=== PATIENT | male | born 1935 | race Caucasian/White ===

== ENCOUNTER 2016-08-24 13:56 | Emergency (ER) | payer MEDICARE ==
[2016-08-24 14:04] VITALS: RESP 22; TEMP 97.4
[2016-08-24 15:18] LABS: APPEARANCE,URINE Clear; BILIRUBIN,URINE NEGATIVE (NEGATIVE); COLOR,URINE Amber; GLUCOSE, URINE (UA) NEGATIVE (NEGATIVE); KETONES,URINE NEGATIVE (NEGATIVE); LEUKOCYTE ESTERASE ,URINE NEGATIVE (NEGATIVE); NITRATE,URINE NEGATIVE (NEGATIVE); OCCULT BLOOD,URINE 3+ (NEG-TRACE)
[2016-08-24 15:22] LABS: RBC,URINE TNTC (0-3AV/HPF); WBC,URINE 0-2 (0-5AV/HPF)
[2016-08-24 15:28] VITALS: BP 97/54; PULSE 72; O2SAT 96
== END 2016-08-24 15:10 | disposition home or self-care (01) | DRG 696 ==
LOC: ED 13:56
DX: R33.9 Retention of urine, unspecified (principal)
CPT/HCPCS: 51798; 81001; 99282; 99284

== ENCOUNTER 2016-08-27 07:43 | Emergency (ER) | payer MEDICARE ==
[2016-08-27 07:44] VITALS: O2SAT 96
[2016-08-27 09:32] VITALS: BP 105/48; PULSE 75; RESP 20; TEMP 97.8
== END 2016-08-27 11:10 | disposition home or self-care (01) | DRG 696 ==
LOC: ED 07:43
DX: R33.9 Retention of urine, unspecified (principal); N47.2 Paraphimosis
CPT/HCPCS: 51798; 99283

== ENCOUNTER 2017-02-19 07:44 | Emergency (ER) | payer MEDICARE ==
[2017-02-19 08:17] VITALS: BP 139/78; PULSE 100; RESP 22; TEMP 98.5; O2SAT 94
== END 2017-02-19 08:30 | disposition home or self-care (01) | DRG 696 ==
LOC: ED 07:44
DX: R33.9 Retention of urine, unspecified (principal)
CPT/HCPCS: 99282

== ENCOUNTER 2017-02-23 21:23 | Emergency (ER) | payer MEDICARE ==
[2017-02-23 21:29] VITALS: RESP 22; TEMP 97.3
[2017-02-23 23:35] VITALS: BP 122/70; PULSE 69; O2SAT 92
== END 2017-02-23 22:20 | disposition home or self-care (01) | DRG 696 ==
LOC: ED 21:23
DX: R33.9 Retention of urine, unspecified (principal); Z46.6 Encounter for fitting and adjustment of urinary device
CPT/HCPCS: 99282

== ENCOUNTER 2017-03-14 08:06 | Emergency (ER) | payer MEDICARE ==
[2017-03-14 08:27] VITALS: RESP 22; TEMP 99.9
[2017-03-14 09:09] LABS: APPEARANCE,URINE Turbid; BILIRUBIN,URINE NEGATIVE (NEGATIVE); COLOR,URINE Yellow; GLUCOSE, URINE (UA) NEGATIVE (NEGATIVE); KETONES,URINE NEGATIVE (NEGATIVE); LEUKOCYTE ESTERASE ,URINE 3+ (NEGATIVE); NITRATE,URINE POSITIVE (NEGATIVE); OCCULT BLOOD,URINE 2+ (NEG-TRACE); UROBILINOGEN,URINE 0.2 (0.2-1.0 EU)
[2017-03-14 09:22] LABS: WBC,URINE TNTC (0-5AV/HPF)
[2017-03-14 09:51] VITALS: BP 117/68; PULSE 86; O2SAT 94
== END 2017-03-14 09:38 | disposition home or self-care (01) | DRG 700 ==
LOC: ED 08:06
DX: T83.098A Other mechanical complication of other urinary catheter, initial encounter (principal); R33.9 Retention of urine, unspecified
CPT/HCPCS: 81001; 87077; 87088; 87186; 99282

== ENCOUNTER 2017-07-16 06:17 | Emergency (ER) | payer MEDICARE ==
[2017-07-16 06:38] VITALS: BP 105/59; TEMP 97.6
[2017-07-16 08:46] VITALS: PULSE 93; RESP 22
[2017-07-16 08:47] VITALS: O2SAT 94
== END 2017-07-16 08:14 | disposition home or self-care (01) | DRG 700 ==
LOC: ED 06:17
DX: T83.091A Other mechanical complication of indwelling urethral catheter, initial encounter (principal); R30.0 Dysuria
CPT/HCPCS: 51702; 99283

== ENCOUNTER 2018-04-21 16:08 | Emergency (ER) | payer MEDICARE ==
[2018-04-21 16:40] VITALS: RESP 24; TEMP 97.4; O2SAT 91
[2018-04-21] MEDS ORDERED: LIDOCAINE HCL 2% GEL TOP ONE (16:54)
[2018-04-21 18:06] VITALS: BP 115/80; PULSE 96
== END 2018-04-21 17:45 | disposition home or self-care (01) | DRG 696 ==
LOC: ED 16:08
DX: R33.9 Retention of urine, unspecified (principal)
CPT/HCPCS: 51702; 51798; 99283; A9270-GY

== ENCOUNTER 2018-06-30 05:50 | Inpatient (IN) | payer MEDICARE ==
[2018-06-30] MEDS: SODIUM CHLORIDE 0.9% FLUSH 10 ML SOL IV PRN (06:00)
[2018-06-30] MEDS ORDERED: LORAZEPAM 2 MG/ML SOL ONE (06:13)
[2018-06-30] MEDS ORDERED: LORAZEPAM 2 MG/ML 10ML MDV 2 MG/ML VIAL IV ONE ×2 (06:20→23:50)
[2018-06-30 06:23] LABS: HEMATOCRIT 41 % (39-53); HEMOGLOBIN 13.3 gm/dl (13.5-17.7); MEAN CORPUSCULAR HEMOGLOBIN 29.8 pg (27.0-32.0); MEAN CORPUSCULAR HGB CONC 32.5 gm/dl (32.0-36.0); MEAN CORPUSCULAR VOLUME 92 fL (80-100)
[2018-06-30 06:29] LABS: ALBUMIN 3.2 gm/dl (3.4-5.0); BILIRUBIN,TOTAL 0.8 mg/dl (0.2-1.0); CALCIUM 9.3 mg/dl (8.5-10.1); CARBON DIOXIDE 29.6 mEq/L (21-32); CREATININE 1.17 mg/dl (0.80-1.30); POTASSIUM 5.2 mMol/L (3.5-5.1); TOTAL PROTEIN 7.9 gm/dl (6.4-8.2); TROP I 0.026 ng/ml (0.000-0.056)
[2018-06-30 06:35] LABS: INR 1.14 (0.86-1.12)
[2018-06-30 06:44] LABS: BAND NEUTROPHILS % (MANUAL) 5 %; BASOPHILS % (MANUAL) 0 % (0-3); EOSINOPHILS % (MANUAL) 0 % (0-9); LYMPHOCYTES % (MANUAL) 3 % (10-50); MONOCYTES % (MANUAL) 8 % (0-12); NEUTROPHILS % (MANUAL) 84 % (37-80)
[2018-06-30 06:45] LABS: ANISOCYTOSIS SLIGHT
[2018-06-30 06:49] LABS: APPEARANCE,URINE Cloudy; BILIRUBIN,URINE NEGATIVE (NEGATIVE); COLOR,URINE Yellow; GLUCOSE, URINE (UA) NEGATIVE (NEGATIVE); KETONES,URINE 1+ (NEGATIVE); LEUKOCYTE ESTERASE ,URINE 1+ (NEGATIVE); NITRATE,URINE POSITIVE (NEGATIVE); OCCULT BLOOD,URINE 1+ (NEG-TRACE); PH,URINE 8.5
[2018-06-30 06:59] LABS: BACTERIA 3+ (< 1+); CRYSTALS NEGATIVE (0-3 AVE/HPF); EPITHELIAL CELLS 0-1 (SQUAMOUS); WBC,URINE 90-100 (0-5AV/HPF)
[2018-06-30] MEDS ORDERED: LEVOFLOXACIN 25 MG/ML 750 MG in SODIUM CHLORIDE 0.9% 250 ML 150 ML IV ONE (08:00)
[2018-06-30] MEDS ORDERED: LEVOFLOXACIN 25 MG/ML SOL IV ONE ×2 (08:19→21:58)
[2018-06-30 08:57] LABS: ABG PH 7.4 (7.35-7.45)
[2018-06-30 09:31] LABS: TROP I 0.04 ng/ml (0.000-0.056)
[2018-06-30] MEDS ORDERED: PATIENT EDUCATION 1 MISC PRN (09:33)
[2018-06-30] MEDS: SODIUM CHLORIDE 0.9% 1000ML 1,000 ML IV SCH ×2 (11:22→21:24)
[2018-06-30 17:19] LABS: CALCIUM 8.5 mg/dl (8.5-10.1); CARBON DIOXIDE 35.1 mEq/L (21-32); CREATININE 0.76 mg/dl (0.80-1.30); POTASSIUM 4.6 mMol/L (3.5-5.1)
[2018-06-30] MEDS ORDERED: SODIUM CHLORIDE 0.9% 250 ML 250 ML IV ONE (21:58)
[2018-07-01] MEDS ORDERED: LORAZEPAM 2 MG/ML SOL ONE (02:07)
[2018-07-01] MEDS ORDERED: ALBUTEROL/IPRATROPIUM 1 VIAL SOL INH PRN (02:14)
[2018-07-01 07:18] LABS: CALCIUM 8.5 mg/dl (8.5-10.1); CREATININE 0.62 mg/dl (0.80-1.30); POTASSIUM 4.2 mMol/L (3.5-5.1)
[2018-07-01 07:22] LABS: HEMATOCRIT 37 % (39-53); HEMOGLOBIN 11.5 gm/dl (13.5-17.7); MEAN CORPUSCULAR HEMOGLOBIN 29.4 pg (27.0-32.0); MEAN CORPUSCULAR HGB CONC 31.1 gm/dl (32.0-36.0); MEAN CORPUSCULAR VOLUME 95 fL (80-100)
[2018-07-01] MEDS: SODIUM CHLORIDE 0.9% 1000ML 1,000 ML IV SCH (07:29)
[2018-07-01 07:39] LABS: BAND NEUTROPHILS % (MANUAL) 4 %; BASOPHILS % (MANUAL) 0 % (0-3); EOSINOPHILS % (MANUAL) 0 % (0-9); LYMPHOCYTES % (MANUAL) 6 % (10-50); MONOCYTES % (MANUAL) 8 % (0-12); NEUTROPHILS % (MANUAL) 82 % (37-80); NORMAL RBCS PRESENT
[2018-07-01] MEDS ORDERED: ACETAMINOPHEN 650 MG SUP PR PRN (08:38)
[2018-07-01] MEDS: ENOXAPARIN 40 MG SOL SC SCH (09:55)
[2018-07-01] MEDS: ALBUTEROL/IPRATROPIUM 1 VIAL SOL INH SCH ×6 (09:56→23:35)
[2018-07-01] MEDS: PANTOPRAZOLE SODIUM 40 MG/10 ML PDS IV SCH (09:58)
[2018-07-01] MEDS: LEVOFLOXACIN 25 MG/ML 750 MG in SODIUM CHLORIDE 0.9% 250 ML 150 ML IV SCH (10:07)
[2018-07-01] MEDS: DEXTROSE/SALINE 0.45/KCL 20MEQ 1,000 ML/1,000 ML SOL IV SCH ×2 (12:00→21:42)
[2018-07-02] MEDS: ALBUTEROL/IPRATROPIUM 1 VIAL SOL INH SCH ×6 (00:26→20:22)
[2018-07-02] MEDS ORDERED: ACETAMINOPHEN 325 MG PO PRN (00:44)
[2018-07-02 07:39] LABS: BASOPHILS % (AUTO) 1 % (0-3); EOSINOPHILS % (AUTO) 0 % (0-9); HEMATOCRIT 36 % (39-53); HEMOGLOBIN 11.5 gm/dl (13.5-17.7); LYMPHOCYTES % (AUTO) 9.1 % (10-50); MEAN CORPUSCULAR HEMOGLOBIN 29.7 pg (27.0-32.0); MEAN CORPUSCULAR HGB CONC 31.6 gm/dl (32.0-36.0); MEAN CORPUSCULAR VOLUME 94 fL (80-100); MONOCYTES % (AUTO) 9.7 % (0-12); NEUTROPHILS % (AUTO) 79.9 % (37-80)
[2018-07-02 07:40] LABS: ALBUMIN 2.5 gm/dl (3.4-5.0); BILIRUBIN,TOTAL 0.6 mg/dl (0.2-1.0); CALCIUM 8.2 mg/dl (8.5-10.1); CARBON DIOXIDE 34.8 mEq/L (21-32); CREATININE 0.55 mg/dl (0.80-1.30); POTASSIUM 3.4 mMol/L (3.5-5.1); TOTAL PROTEIN 5.8 gm/dl (6.4-8.2)
[2018-07-02] MEDS: DEXTROSE/SALINE 0.45/KCL 20MEQ 1,000 ML/1,000 ML SOL IV SCH (07:41)
[2018-07-02] MEDS ORDERED: POTASSIUM CHLORIDE 10 MEQ CAPSULE PO ONE (08:24)
[2018-07-02] MEDS ORDERED: LEVOFLOXACIN 25 MG/ML SOL IV ONE (09:07)
[2018-07-02] MEDS ORDERED: SODIUM CHLORIDE 0.9% 250 ML 250 ML IV ONE (09:09)
[2018-07-02] MEDS: PANTOPRAZOLE SODIUM 40 MG/10 ML PDS IV SCH (09:18)
[2018-07-02] MEDS: LEVOFLOXACIN 25 MG/ML 750 MG in SODIUM CHLORIDE 0.9% 250 ML 150 ML IV SCH (09:18)
[2018-07-02] MEDS: ENOXAPARIN 40 MG SOL SC SCH (09:19)
[2018-07-02] MEDS: SODIUM CHLORIDE 0.9% FLUSH 10 ML SOL IV PRN ×2 (09:41→11:45)
[2018-07-02] MEDS ORDERED: POTASSIUM CHLORIDE 10 MEQ TER ONE (09:46)
[2018-07-03] MEDS: ALBUTEROL/IPRATROPIUM 1 VIAL SOL INH SCH ×6 (00:43→20:28)
[2018-07-03 07:29] LABS: BASOPHILS % (AUTO) 2 % (0-3); EOSINOPHILS % (AUTO) 3 % (0-9); HEMATOCRIT 37 % (39-53); HEMOGLOBIN 11.9 gm/dl (13.5-17.7); LYMPHOCYTES % (AUTO) 11.5 % (10-50); MEAN CORPUSCULAR HEMOGLOBIN 30.3 pg (27.0-32.0); MEAN CORPUSCULAR HGB CONC 32.2 gm/dl (32.0-36.0); MEAN CORPUSCULAR VOLUME 94 fL (80-100); MONOCYTES % (AUTO) 11.2 % (0-12); NEUTROPHILS % (AUTO) 72.9 % (37-80)
[2018-07-03 07:35] LABS: CALCIUM 8.3 mg/dl (8.5-10.1); CREATININE 0.46 mg/dl (0.80-1.30)
[2018-07-03 07:56] LABS: CARBON DIOXIDE 36.3 mEq/L (21-32)
[2018-07-03 07:59] LABS: POTASSIUM 3.8 mMol/L (3.5-5.1)
[2018-07-03] MEDS: LEVOFLOXACIN 500 MG TAB PO SCH (09:23)
[2018-07-03] MEDS: ENOXAPARIN 40 MG SOL SC SCH (09:23)
[2018-07-03] MEDS: PANTOPRAZOLE SODIUM 40 MG ECT PO SCH (09:23)
[2018-07-03] MEDS ORDERED: BISACODYL 5 MG TAB ECT PO PRN (11:33)
[2018-07-04] MEDS: ALBUTEROL/IPRATROPIUM 1 VIAL SOL INH SCH ×7 (00:27→23:11)
[2018-07-04] MEDS ORDERED: LEVOFLOXACIN 25 MG/ML SOL IV ONE (09:36)
[2018-07-04] MEDS ORDERED: SODIUM CHLORIDE 0.9% 250 ML 250 ML IV ONE (09:36)
[2018-07-04] MEDS: PANTOPRAZOLE SODIUM 40 MG ECT PO SCH (09:39)
[2018-07-04] MEDS: LEVOFLOXACIN 500 MG TAB PO SCH (09:39)
[2018-07-04] MEDS: ENOXAPARIN 40 MG SOL SC SCH (09:40)
[2018-07-05] MEDS: ALBUTEROL/IPRATROPIUM 1 VIAL SOL INH SCH ×4 (06:10→16:00)
[2018-07-05] MEDS: ENOXAPARIN 40 MG SOL SC SCH (08:36)
[2018-07-05] MEDS: LEVOFLOXACIN 500 MG TAB PO SCH (08:40)
[2018-07-05] MEDS: PANTOPRAZOLE SODIUM 40 MG ECT PO SCH (08:41)
[2018-07-05 16:27] VITALS: BP 105/73; TEMP 98.2
[2018-07-05 16:30] VITALS: PULSE 54; RESP 22; O2SAT 92
[2018-07-05] MEDS ORDERED: LACTULOSE PO PRN (17:00)
[2018-07-05] MEDS ORDERED: SIMVASTATIN 20 MG TAB PO SCH (21:00)
[2018-07-06] MEDS ORDERED: PAROXETINE HYDROCHLORIDE 20 MG TAB PO SCH (09:00)
[2018-07-06] MEDS ORDERED: ALBUTEROL/IPRATROPIUM 1 VIAL SOL INH SCH (21:00)
== END 2018-07-05 17:00 | disposition swing bed (61) | DRG 872 ==
LOC: ED 05:50 → ACUTE CARE 08:48 → UNDOADMIN 08:48 → ACUTE CARE 09:45
PROVIDERS: ADMIT Family Medicine; ATTEND Family Medicine
PROC: F01ZBFZ Bed Mobility Assessment using Assistive, Adaptive, Supportive or Protective Equipment (ICD-10-PCS; principal; 2018-07-02)
PROC: F01ZCFZ Transfer Assessment using Assistive, Adaptive, Supportive or Protective Equipment (ICD-10-PCS; 2018-07-02)
DX: A41.89 Other specified sepsis (principal); R40.2122 Coma scale, eyes open, to pain, at arrival to emergency department; T83.511A Infection and inflammatory reaction due to indwelling urethral catheter, initial encounter; R40.2352 Coma scale, best motor response, localizes pain, at arrival to emergency department; R40.2242 Coma scale, best verbal response, confused conversation, at arrival to emergency department; R29.705 NIHSS score 5; N39.0 Urinary tract infection, site not specified; R40.4 Transient alteration of awareness; J44.9 Chronic obstructive pulmonary disease, unspecified; W19.XXXA Unspecified fall, initial encounter; B95.2 Enterococcus as the cause of diseases classified elsewhere; Z16.39 Resistance to other specified antimicrobial drug; R06.2 Wheezing; R53.1 Weakness
CPT/HCPCS: 36415; 36600; 51798; 70450; 71045; 73110; 80048; 80053; 81001; 82550; 82803; 83880; 84484; 85007; 85025; 85027; 85610; 85730; 87040; 87077; 87088; 87186; 93005; 93012; 94640; 94762; 96365; 96374; 99070; 99285; 99291; J1650; J1956; J2060; A6232; A9270-GY

== ENCOUNTER 2018-07-05 11:57 | Inpatient (IN) | payer MEDICARE ==
[2018-07-05] MEDS ORDERED: LACTULOSE 10 GM/15 ML SOL PO PRN (17:15)
[2018-07-05] MEDS: SIMVASTATIN 20 MG TAB PO SCH (21:21)
[2018-07-05] MEDS: ALBUTEROL NEB SOL 2.5MG/3ML 1 VIAL SOL NEB PRN (21:32)
[2018-07-06] MEDS: ALBUTEROL/IPRATROPIUM 1 VIAL SOL INH SCH ×5 (00:47→17:59)
[2018-07-06] MEDS: ALBUTEROL NEB SOL 2.5MG/3ML 1 VIAL SOL NEB PRN ×2 (09:08→15:30)
[2018-07-06] MEDS: LEVOFLOXACIN 500 MG TAB PO SCH (09:12)
[2018-07-06] MEDS: PANTOPRAZOLE SODIUM 40 MG ECT PO SCH (09:13)
[2018-07-06] MEDS: ALLOPURINOL 100 MG TAB PO SCH (09:13)
[2018-07-06] MEDS: PAROXETINE HYDROCHLORIDE 20 MG TAB PO SCH (09:13)
[2018-07-06] MEDS: DUTASTERIDE 0.5 MG SGL PO SCH (09:14)
[2018-07-06] MEDS: SIMVASTATIN 20 MG TAB PO SCH (20:34)
[2018-07-07] MEDS: ALBUTEROL/IPRATROPIUM 1 VIAL SOL INH SCH ×4 (00:19→17:57)
[2018-07-07] MEDS: LEVOFLOXACIN 500 MG TAB PO SCH (08:45)
[2018-07-07] MEDS: DUTASTERIDE 0.5 MG SGL PO SCH (08:45)
[2018-07-07] MEDS: PAROXETINE HYDROCHLORIDE 20 MG TAB PO SCH (08:45)
[2018-07-07] MEDS: ALLOPURINOL 100 MG TAB PO SCH (08:46)
[2018-07-07] MEDS: PANTOPRAZOLE SODIUM 40 MG ECT PO SCH (08:46)
[2018-07-07] MEDS: ALBUTEROL NEB SOL 2.5MG/3ML 1 VIAL SOL NEB PRN (09:42)
[2018-07-07] MEDS: SIMVASTATIN 20 MG TAB PO SCH (21:05)
[2018-07-08] MEDS: ALBUTEROL/IPRATROPIUM 1 VIAL SOL INH SCH ×4 (01:29→17:22)
[2018-07-08] MEDS: PAROXETINE HYDROCHLORIDE 20 MG TAB PO SCH (08:00)
[2018-07-08] MEDS: ALLOPURINOL 100 MG TAB PO SCH (08:00)
[2018-07-08] MEDS: LEVOFLOXACIN 500 MG TAB PO SCH (08:01)
[2018-07-08] MEDS: DUTASTERIDE 0.5 MG SGL PO SCH (08:01)
[2018-07-08] MEDS: PANTOPRAZOLE SODIUM 40 MG ECT PO SCH (08:01)
[2018-07-08] MEDS: SIMVASTATIN 20 MG TAB PO SCH (20:11)
[2018-07-09] MEDS: ALBUTEROL/IPRATROPIUM 1 VIAL SOL INH SCH ×6 (00:04→23:18)
[2018-07-09] MEDS: ALBUTEROL NEB SOL 2.5MG/3ML 1 VIAL SOL NEB PRN (08:04)
[2018-07-09] MEDS: LEVOFLOXACIN 500 MG TAB PO SCH (09:14)
[2018-07-09] MEDS: DUTASTERIDE 0.5 MG SGL PO SCH (09:14)
[2018-07-09] MEDS: PAROXETINE HYDROCHLORIDE 20 MG TAB PO SCH (09:15)
[2018-07-09] MEDS: PANTOPRAZOLE SODIUM 40 MG ECT PO SCH (09:16)
[2018-07-09] MEDS: ALLOPURINOL 100 MG TAB PO SCH (09:17)
[2018-07-09] MEDS: SIMVASTATIN 20 MG TAB PO SCH (20:13)
[2018-07-10] MEDS: ALBUTEROL/IPRATROPIUM 1 VIAL SOL INH SCH ×3 (07:02→18:16)
[2018-07-10] MEDS: DUTASTERIDE 0.5 MG SGL PO SCH (09:36)
[2018-07-10] MEDS: PANTOPRAZOLE SODIUM 40 MG ECT PO SCH (09:38)
[2018-07-10] MEDS: ALLOPURINOL 100 MG TAB PO SCH (09:38)
[2018-07-10] MEDS: LEVOFLOXACIN 500 MG TAB PO SCH (09:39)
[2018-07-10] MEDS: PAROXETINE HYDROCHLORIDE 20 MG TAB PO SCH (09:40)
[2018-07-10] MEDS: SIMVASTATIN 20 MG TAB PO SCH (20:17)
[2018-07-10] MEDS: ALBUTEROL NEB SOL 2.5MG/3ML 1 VIAL SOL NEB PRN (20:29)
[2018-07-11] MEDS: ALBUTEROL/IPRATROPIUM 1 VIAL SOL INH SCH ×5 (00:37→23:09)
[2018-07-11] MEDS: DUTASTERIDE 0.5 MG SGL PO SCH (08:39)
[2018-07-11] MEDS: LEVOFLOXACIN 500 MG TAB PO SCH (08:40)
[2018-07-11] MEDS: PAROXETINE HYDROCHLORIDE 20 MG TAB PO SCH (08:40)
[2018-07-11] MEDS: PANTOPRAZOLE SODIUM 40 MG ECT PO SCH (08:41)
[2018-07-11] MEDS: ALLOPURINOL 100 MG TAB PO SCH (08:42)
[2018-07-11 19:45] LABS: APPEARANCE,URINE Cloudy; COLOR,URINE Red; GLUCOSE, URINE (UA) NEGATIVE (NEGATIVE); LEUKOCYTE ESTERASE ,URINE TRACE (NEGATIVE); NITRATE,URINE NEGATIVE (NEGATIVE); OCCULT BLOOD,URINE 3+ (NEG-TRACE)
[2018-07-11 20:01] LABS: BILIRUBIN,URINE NEGATIVE (NEGATIVE); KETONES,URINE NEGATIVE (NEGATIVE); UROBILINOGEN,URINE 0.2 (0.2-1.0 EU)
[2018-07-11 20:02] LABS: BACTERIA UNABLE (< 1+); CRYSTALS UNABLE (0-3 AVE/HPF); EPITHELIAL CELLS UNABLE (SQUAMOUS); RBC,URINE TNTC (0-3AV/HPF); WBC,URINE UNABLE (0-5AV/HPF)
[2018-07-11] MEDS: SIMVASTATIN 20 MG TAB PO SCH (20:04)
[2018-07-12] MEDS: ALBUTEROL/IPRATROPIUM 1 VIAL SOL INH SCH ×3 (08:51→21:38)
[2018-07-12] MEDS: LEVOFLOXACIN 500 MG TAB PO SCH (08:52)
[2018-07-12] MEDS: DUTASTERIDE 0.5 MG SGL PO SCH (08:53)
[2018-07-12] MEDS: PAROXETINE HYDROCHLORIDE 20 MG TAB PO SCH (08:54)
[2018-07-12] MEDS: ALLOPURINOL 100 MG TAB PO SCH (08:56)
[2018-07-12] MEDS: PANTOPRAZOLE SODIUM 40 MG ECT PO SCH (08:56)
[2018-07-12] MEDS: SIMVASTATIN 20 MG TAB PO SCH (21:41)
[2018-07-13] MEDS: ALBUTEROL/IPRATROPIUM 1 VIAL SOL INH SCH ×3 (00:34→07:44)
[2018-07-13] MEDS ORDERED: PAROXETINE HYDROCHLORIDE 20 MG TAB PO SCH (07:28)
[2018-07-13 08:00] VITALS: PULSE 62; RESP 22; O2SAT 100
[2018-07-13 08:03] VITALS: BP 110/54; TEMP 98
[2018-07-13] MEDS: DUTASTERIDE 0.5 MG SGL PO SCH (08:05)
[2018-07-13] MEDS: ALLOPURINOL 100 MG TAB PO SCH (08:06)
[2018-07-13] MEDS: PANTOPRAZOLE SODIUM 40 MG ECT PO SCH (08:06)
== END 2018-07-13 11:10 | disposition home or self-care (01) | DRG 872 ==
LOC: ACUTE CARE 17:05
PROVIDERS: ADMIT Family Medicine; ATTEND Family Medicine
PROC: F01ZBZZ Bed Mobility Assessment (ICD-10-PCS; principal; 2018-07-05)
PROC: F01ZCZZ Transfer Assessment (ICD-10-PCS; 2018-07-05)
PROC: F01K5ZZ Range of Motion and Joint Integrity Assessment of Musculoskeletal System - Upper Back / Upper Extremity (ICD-10-PCS; 2018-07-07)
PROC: F02Z3FZ Grooming/Personal Hygiene Assessment using Assistive, Adaptive, Supportive or Protective Equipment (ICD-10-PCS; 2018-07-07)
DX: A41.89 Other specified sepsis (principal); N39.0 Urinary tract infection, site not specified; T83.511A Infection and inflammatory reaction due to indwelling urethral catheter, initial encounter; R41.82 Altered mental status, unspecified; J44.9 Chronic obstructive pulmonary disease, unspecified; R53.1 Weakness; R33.9 Retention of urine, unspecified; E78.5 Hyperlipidemia, unspecified
CPT/HCPCS: 81001; 87088; 94640; J7613; A6232; A9270-GY